=== PATIENT | female | born 1940 | race Caucasian/White ===

== ENCOUNTER 2020-02-22 14:14 | Emergency (ER) | payer OTHER ==
[~2020-02-22 14:14] MED LIST: NA CHLORIDE 0.9% 1,000 ML ONE
[2020-02-22] MEDS ORDERED: AMIODARONE HCL 150 MG in D5W 100 ML IV STA (14:23)
[2020-02-22 14:45] LABS: Absolute Lymphocytes (CBC) 7.6 K/uL (0.7-4.9); Basophils % 0.9 % (0-1.3); Lymphocytes % 63.5 % (15.3-44.8); MPV 9.3 fL (7.6-11.3); RBC Red Blood Cell Count 3.54 M/uL (3.86-4.86)
[2020-02-22 14:49] LABS: Protime INR 1.06
--- NOTE | 2020-02-22 14:49 | RAD REPORT ---
EXAM DESCRIPTION: RAD - Chest Single View - 02/22/2020 2:41 pm CLINICAL HISTORY: collapse, CPR Chest pain. COMPARISON: CHEST SINGLE VIEW dated 05/25/2010; CHEST PA AND LAT 2 VIEW dated 07/12/2000 FINDINGS: Portable technique limits examination quality. Tip of the ET tube is above the sergio. The lungs are grossly clear. The heart is mildly enlarged in size with dual lead pacer device present. No displaced fractures.
[2020-02-22] MEDS ORDERED: AMIODARONE HCL 900 MG in Dextrose 5%-Water 482 ML IV SCH (15:00)
--- NOTE | 2020-02-22 15:02 | RAD REPORT ---
EXAM DESCRIPTION: CT - Head Brain Wo Cont - 02/22/2020 2:51 pm CLINICAL HISTORY: collapse, head injury Fall, head injury, pain, trauma COMPARISON: No comparisons TECHNIQUE: All CT scans are performed using dose optimization technique as appropriate and may inclu de automated exposure control or mA/KV adjustment according to patient size. FINDINGS: No intracranial hemorrhage, hydrocephalus or extra-axial fluid collection.Mild generalized brain atrophy is present with mild periventricular and deep white matter chronic microvascular ische bernard changes.No areas of brain edema or evidence of midline shift. The paranasal sinuses and mastoids are clear. The calvarium is intact. IMPRESSION: No acute intracranial abnormality.
--- NOTE | 2020-02-22 15:07 | RAD REPORT ---
EXAM DESCRIPTION: CT - Angio Aorta For Dissection - 02/22/2020 2:51 pm CLINICAL HISTORY: Chest pain radiating to the back. collapse COMPARISON: No comparisons TECHNIQUE: CT angiography of the aorta was performed with MIPs. All CT scans are performed using dose optimization technique as appropriate and may include automated exposure control or mA/KV adjustment according to patient size. FINDINGS: A left aortic arch is present with normal branching pattern of the great vessels.No acute aortic finding is seen such as aneurysm, penetrating ulcer or dissection. The celiac axis, SMA, ANIYA and renal arteries are patent. No evidence of pulmonary embolism. Moderate cardiomegaly with pacemaker wires in place. Atelectasis is present in both lung bases. ET tube tip is above the sergio. The liver demonstrates no focal mass or biliary dilatation.The spleen, pancreas, adrenal glands and k idneys are within normal limits for arterial phase imaging. No bowel obstruction, free fluid or abscess.Moderate stool is seen in the colon.No pathologic enlarge d lymphadenopathy identified. No displaced fractures evident. IMPRESSION: No acute aortic finding is demonstrated.
[2020-02-22 15:21] LABS: Troponin (Emerg Dept Use Only) 0.13 ng/mL (0.0-0.045)
[2020-02-22 15:23] LABS: Magnesium 3.5 mg/dL (1.8-2.4)
[2020-02-22] MEDS ORDERED: FENTANYL CITR 100 MCG/2 ML ONE (15:33)
[2020-02-22 15:39] LABS: Arterial Blood Carboxyhemoglob 0.7 % (0-1.5); Blood Gas Oxyhemoglobin 98.2 % (94-97); Blood O2 Saturation 99.7 % (92-98.5)
--- NOTE | 2020-02-22 16:03 | ER ---
Nurse's Notes [facility] Name: Carole Enriquez Age: 79 yrs Sex: Female : 1940 Arrival Date: 02/22/2020 Time: 14:15 Bed 2 Private MD: Parminder Reina B Diagnosis: Cardiac arrest;Bradycardia, unspecified;Pacemaker Malfunction Presentation: 02/21 14:14 Chief complaint: EMS states: witnessed arrest, pt was feeling SOB while talking with sv family, had a syncopal episode; went down and hit her head on a railing. No pulse noted by family and CPR was started. On EMS arrival, CPR continued by thumper and en route pt was noted to be in VFib twice and shocked twice at 1352 \T\ 1403. Care prior to arrival: CPR manually via thumper performed by bystander performed by EMS was defibrillated and is still in progress. Compressions began prior to arrival. 14:14 Method Of Arrival: EMS: [facility] sv 14:14 Acuity: JOHN 1 sv 14:46 Risk Assessment: Do you want to hurt yourself or someone else? Unable to obtain. Onset sv of symptoms was February 22, 2020. Historical: - Allergies: 14:34 No Known Allergies; sv - PMHx: 14:34 Hypotension; Bradycardia; low Vit D level; sv - PSHx: 14:34 Pacemaker; Hip; sv - Immunization history:: Adult Immunizations unknown. - Social history:: Smoking status: unknown. - Family history:: not pertinent. - Hospitalizations: : No recent hospitalization is reported. Screenin:44 Abuse screen: unable to complete. Nutritional screening: unable to complete . sv Tuberculosis screening: unable to complete. Assessment: 14:14 CPR assessment: unresponsive, no respiratory effort, Ambu ventilation. Cardiac rhythm sv is asystole. General: Behavior is unresponsive. Neuro: Level of Consciousness is unresponsive. Respiratory: Respiratory pattern is AMBU ventilation. Derm: Skin is pale. 14:16 Reassessment: CPR paused, pulse check, asystole, CPR resumed. sv 14:19 Reassessment: CPR paused, pulse check, pt has a palpable pulse verified by Dr Rice, sv HR-56. 14:47 Reassessment: Belongings given to family. sv 15:02 Respiratory: Ventilator assessment: ET Tube: 7.0 22cm at teeth Ventilator Mode: Assist hb Control (AC) Tidal Volume: 460 Respiratory Rate: 14 FiO2: 100%. PEEP: 5 HOB > 30 degrees. 15:13 General: Behavior is unresponsive. Neuro: Level of Consciousness is unresponsive. em Respiratory: Airway is patent via oral intubation Respiratory effort is. Derm: Skin is intact, Skin is dry, Skin is pale, Skin temperature is cool. 15:25 Reassessment: currently pacing at 60 BPM, D/C'd amiodarone. em 16:20 Reassessment: No changes from previously documented assessment. pending transfer. em 17:20 Reassessment: report given to [facility]. Reassessment:. General: Behavior is em unresponsive. Neuro: Level of Consciousness is unresponsive. Respiratory: Airway is patent via oral intubation Respiratory effort is even. Derm: Skin is intact, Skin is dry, Skin is pale, Skin temperature is cool. Vital Signs: 14:22 Pulse 56; Pulse Ox 99% ; sv 14:24 BP 180 / 96; Pulse 68; Resp 16; Pulse Ox 100% ; sv 14:48 BP 119 / 49; Pulse 38; Resp 16 A; Pulse Ox 100% on ETT vent; em 15:05 BP 103 / 42; Pulse 30; Resp 14; Pulse Ox 100% on ETT vent; em 15:33 BP 102 / 89; Pulse 60; Resp 14 A; Pulse Ox 100% on ETT vent; em 16:00 BP 112 / 65; Pulse 54; Resp 18; Temp 95.5(C); Pulse Ox 100% on ETT vent; em 16:45 BP 130 / 67; Pulse 49; Resp 21; Temp 95.9(C); Pulse Ox 98% on ETT vent; em 17:15 BP 136 / 53; Pulse 55; Resp 16; Temp 96.7(C); Pulse Ox 99% on ETT vent; em ED Course: 14:14 Maintain EMS IV. Dressing intact. Site clean \T\ dry. Gauge \T\ site: 18G R AC. sv 14:15 Patient arrived in ED. ss 14:15 lease purchase driver on. Pulse ox on. NIBP on. sv 14:18 Inserted saline lock: 22 gauge in left antecubital area, using aseptic technique. sv ,using aseptic technique. done by Bryan ARRINGTON. 14:18 Assisted provider with intubation using 7.0 mm ETT via oral route. ET tube secured at sv 22cm at the teeth. Set up intubation tray. Intubated by Bradly Rice MD Placement verified by CO2 detector w/ + color change, auscultating bilateral breath sounds. 14:23 Assisted provider with central line placement. Set up central line tray. Triple lumen sv line placed in right femoral. Line placed by Bradly Rice MD Placement verified by blood return, Dressed with Tegaderm, Blood was collected. Patient tolerated pt intubated Before procedure, did Practitioner(s) obtain informed consent? No. Patient \T\ family education about procedure, CLABSI prevention and S/S of infection? No. Time-out/Briefing performed prior to start of procedure? Yes. Was handwashing/sanitizing done immediately prior to procedure? Yes. Was patient positioned to in a way to prevent air embolism? Yes. Was procedure site sterilized? Yes, with chlorhexidine. Was the site allowed to dry? Yes. Was local anesthetic and/or sedation utilized? Yes. During the procedure, did the Practitioner(s) maintain a sterile field? Yes. Were unused ports clamped during insertion? Yes. Was a 2nd qualified MD obtained after 3 unsuccessful insertion attempts? Yes. Was blood aspirated from each lumen? Yes. After the procedure, did the Practitioner(s) clean the site and apply a sterile dressing? Yes. 14:25 Patient has correct armband on for positive identification. Placed in gown. Bed in low sv position. Call light in reach. Side rails up X2. 14:28 Bradly Rice MD is Attending Physician. rn 14:30 Arm band placed on. sv 14:[address] via stretcher. sv 14:34 Triage completed. sv 14:34 Parminder Reina MD is Private Physician. sv 14:41 XRAY Chest (1 view) In Process Unspecified. EDMS 14:43 Bryan Denise, MURPHY is Primary Nurse. sv 14:51 CT Head Brain wo Cont In Process Unspecified. EDMS 14:51 CT Aorta for Dissection In Process Unspecified. EDMS 16:00 Pretty cath inserted, using sterile technique, 16 Fr., by collection manager, balloon inflated, to em gravity drainage, returned clear yellow urine. Patient tolerated well. 16:10 NGT: inserted 16 Fr. via left nare. verified placement of air over stomach, verified em return of gastric contents, to intermittent suction. Returned bright red blood. Patient tolerated well. Administered Medications: 14:17 Drug: EPINEPHrine 0.1mg/mL 1:10,000 1 mg Route: IVP; Site: right antecubital; sv 14:39 Follow up: Response: No adverse reaction sv 14:18 Drug: NS 0.9% 1000 ml Route: IV; Rate: 1000 ml; Site: left antecubital; sv 16:00 Follow up: IV Status: Completed infusion; IV Intake: 1000ml em 14:18 Drug: Magnesium Sulfate 1 grams {Note: given by Debbie ARRINGTON.} Route: IVPB; Rate: bolus; sv Site: left antecubital; 14:19 Follow up: Response: No adverse reaction; IV Status: Completed infusion sv 14:19 Drug: Sodium Bicarbonate 1 amp Route: IVP; Site: left antecubital; sv 14:39 Follow up: Response: No adverse reaction sv 14:21 Drug: amiodarone 150 mg Volume: 100 ml; Route: IVPB; Infused Over: 10 mins; Site: left sv antecubital; 14:30 Follow up: IV Status: Completed infusion em 14:26 Drug: amiodarone 900 mg, D5W 500 ml Route: IVPB; Rate: 1 mg/min; Site: left antecubital;sv 16:20 Follow up: IV Status: Order to discontinue infusion em 14:59 CANCELLED (Duplicate Order): Atropine 0.5 mg IVP once rn 15:30 Drug: fentaNYL (PF) 75 mcg Route: IVP; Site: left antecubital; em 16:00 Follow up: Response: No adverse reaction em 16:07 Drug: Atropine 0.5 mg Route: IVP; Site: left antecubital; em 16:10 Follow up: Response: No adverse reaction; Marked relief of symptoms em 16:10 Drug: Atropine 0.5 mg Route: IVP; Site: left antecubital; em 17:05 Follow up: Response: No adverse reaction; Marked relief of symptoms em Intake: 16:00 IV: 1000ml; Total: 1000ml. em Output: 17:36 Urine: 100ml (Pretty); Total: 100ml. em Outcome: 16:02 ER care complete, transfer ordered by . rn 17:36 Transferred by helicopter to [facility], [facility] [place], Transfer form completed. em X-rays sent w/ patient. 17:36 Condition: stable 17:36 Instructed on the need for admit. 17:41 Patient left the ED. em Signatures: Dispatcher [employer] Nida Carroll RN RN sv Munoz, Edgar, RN RN em Nieto, Roman, MD MD rn Smirch, Shelby, RN RN ss Baxter, Heather, RN RN hb
--- NOTE | 2020-02-22 16:04 | EDPHYS ---
Physician Documentation [facility] Name: Carole Enriquez Age: 79 yrs Sex: Female : 1940 Arrival Date: 02/22/2020 Time: 14:15 Bed 2 Private MD: Parminder Reina B ED Physician Bradly Rice HPI: 02/21 15:40 This 79 yrs old Female presents to ER via EMS with complaints of CPR. rn 15:40 Preceding the arrest, the patient collapsed, was dyspneic. The arrest occurred at home. rn Pre-hospital course: The arrest was witnessed Bystanders at the scene performed CPR. EMS care prior to arrival: initiation of ACLS, peripheral IV. The patient has not experienced similar symptoms in the past. Per Family, patient at home, seemed sob, collapsed, struck head on rail, no pulse felt, + bystander CPR, has pacemaker, EMS reports thought she had faint pulse but wasn't sure, started CPR, no airway, + bagging, shocked twice for suspected vfib.. Historical: - Allergies: 14:34 No Known Allergies; sv - PMHx: 14:34 Hypotension; Bradycardia; low Vit D level; sv - PSHx: 14:34 Pacemaker; Hip; sv - Immunization history:: Adult Immunizations unknown. - Social history:: Smoking status: unknown. - Family history:: not pertinent. - Hospitalizations: : No recent hospitalization is reported. ROS: 15:40 Unable to obtain ROS due to comatose state. rn Exam: 15:40 Constitutional: This is a well developed, well nourished patient who is unsrepsonsive, rn GCS 3 Head/Face: Normocephalic, atraumatic. Eyes: Unequal pupils but right pupil with evidence of cataract surgery ENT: No oral swelling or stridor Cardiovascular: No spont cardiac activity noted. Respiratory: Coarse bilateral breath sounds with bagging Abdomen/GI: soft, non-distended MS/ Extremity: Pulseless, warm extremities. Neuro: GCS 3, no posturing 15:40 ECG was reviewed by the Attending Physician. Vital Signs: 14:22 Pulse 56; Pulse Ox 99% ; sv 14:24 BP 180 / 96; Pulse 68; Resp 16; Pulse Ox 100% ; sv 14:48 BP 119 / 49; Pulse 38; Resp 16 A; Pulse Ox 100% on ETT vent; em 15:05 BP 103 / 42; Pulse 30; Resp 14; Pulse Ox 100% on ETT vent; em 15:33 BP 102 / 89; Pulse 60; Resp 14 A; Pulse Ox 100% on ETT vent; em 16:00 BP 112 / 65; Pulse 54; Resp 18; Temp 95.5(C); Pulse Ox 100% on ETT vent; em 16:45 BP 130 / 67; Pulse 49; Resp 21; Temp 95.9(C); Pulse Ox 98% on ETT vent; em 17:15 BP 136 / 53; Pulse 55; Resp 16; Temp 96.7(C); Pulse Ox 99% on ETT vent; em Procedures: 14:31 Intubation: Ventilated with 100% NRB prior to procedure. O2 saturation prior to rn lvn was 40 %. Intubated orally using # 4 Tomasa blade with 7.5 mm ETT. was successful on first attempt. Cricoid pressure applied during procedure. Tube secured with ETT flor at right side of mouth measured 22 cm at teeth. Placement verified by CXR, auscultating bilateral breath sounds, O2 saturation after procedure was 98 %. Patient tolerated well. Central Line: the site was prepped with Betadine, in sterile fashion, a triple lumen catheter was inserted, in the right femoral vein, in 1 attempts. placement was verified, by blood return, the site was dressed with Tegaderm, using sterile technique, the patient tolerated the procedure, well. MDM: 14:28 Patient medically screened. rn 15:34 ED course: Consulted with Connie calloway regarding concern for pacemaker malfunction, not rn capturing, recommends transfer to [facility] for further care. External pacer started, capturing at 60 bpm 30mA, BP stable. . 16:00 Differential diagnosis: arrythmia, cardiac arrest, respiratory arrest. Differential rn diagnosis: pacemaker malfunction. Data reviewed: vital signs, nurses notes. Counseling: I had a detailed discussion with the patient and/or guardian regarding: the historical points, exam findings, and any diagnostic results supporting the discharge/admit diagnosis, lab results, radiology results, the need to transfer to another facility, for higher level of care. Response to treatment: the patient's symptoms have mildly improved after treatment, and as a result, I will admit patient. ED course: Placed magnet over pacer, still not capturing more than 40 bpm, restarted external pacer, accepted for transfer to [facility]U.. 02/21 14:30 Order name: Basic Metabolic Panel; Complete Time: 15:26 rn 02/21 14:30 Order name: CBC with Diff; Complete Time: 16:15 rn 02/21 14:30 Order name: Magnesium; Complete Time: 15:26 rn 02/21 14:30 Order name: NT PRO-BNP; Complete Time: 15:26 rn 02/21 14:30 Order name: PT-INR; Complete Time: 14:57 rn 02/21 14:30 Order name: Troponin (emerg Dept Use Only); Complete Time: 15:26 rn 02/21 14:30 Order name: XRAY Chest (1 view); Complete Time: 14:57 rn 02/21 14:30 Order name: Blood Culture Adult (2) rn 02/21 14:30 Order name: ABG; Complete Time: 17:08 rn 02/21 14:31 Order name: CT Head Brain wo Cont; Complete Time: 15:12 rn 02/21 14:31 Order name: CT Aorta for Dissection; Complete Time: 15:12 rn 02/21 14:54 Order name: CBC Smear Scan; Complete Time: 16:15 EDMS 02/21 17:03 Order name: ARTERIAL BLOOD GAS EDID 02/21 14:30 Order name: EKG; Complete Time: 14:32 rn 02/21 14:30 Order name: Cardiac monitoring; Complete Time: 14:47 rn 02/21 14:30 Order name: EKG - Nurse/Tech; Complete Time: 16:45 rn 02/21 14:30 Order name: IV Saline Lock; Complete Time: 14:47 rn 02/21 14:30 Order name: Labs collected and sent; Complete Time: 14:47 rn 02/21 14:30 Order name: O2 Per Protocol; Complete Time: 14:47 rn 02/21 14:30 Order name: O2 Sat Monitoring; Complete Time: 14:47 rn 02/21 14:31 Order name: Glucose Level; Complete Time: 16:45 rn EC:40 Rate is 32 beats/min. Rhythm is irregularly irregular. CT interval is prolonged. QRS rn interval is normal. QT interval is prolonged. No Q waves. T waves are Normal. No ST changes noted. Clinical impression: Bradycardia, paced, pacemaker failure to capture. Interpreted by me. Reviewed by me. Administered Medications: 14:17 Drug: EPINEPHrine 0.1mg/mL 1:10,000 1 mg Route: IVP; Site: right antecubital; sv 14:39 Follow up: Response: No adverse reaction sv 14:18 Drug: NS 0.9% 1000 ml Route: IV; Rate: 1000 ml; Site: left antecubital; sv 16:00 Follow up: IV Status: Completed infusion; IV Intake: 1000ml em 14:18 Drug: Magnesium Sulfate 1 grams {Note: given by Debbie ARRINGTON.} Route: IVPB; Rate: bolus; sv Site: left antecubital; 14:19 Follow up: Response: No adverse reaction; IV Status: Completed infusion sv 14:19 Drug: Sodium Bicarbonate 1 amp Route: IVP; Site: left antecubital; sv 14:39 Follow up: Response: No adverse reaction sv 14:21 Drug: amiodarone 150 mg Volume: 100 ml; Route: IVPB; Infused Over: 10 mins; Site: left sv antecubital; 14:30 Follow up: IV Status: Completed infusion em 14:26 Drug: amiodarone 900 mg, D5W 500 ml Route: IVPB; Rate: 1 mg/min; Site: left antecubital;sv 16:20 Follow up: IV Status: Order to discontinue infusion em 14:59 CANCELLED (Duplicate Order): Atropine 0.5 mg IVP once rn 15:30 Drug: fentaNYL (PF) 75 mcg Route: IVP; Site: left antecubital; em 16:00 Follow up: Response: No adverse reaction em 16:07 Drug: Atropine 0.5 mg Route: IVP; Site: left antecubital; em 16:10 Follow up: Response: No adverse reaction; Marked relief of symptoms em 16:10 Drug: Atropine 0.5 mg Route: IVP; Site: left antecubital; em 17:05 Follow up: Response: No adverse reaction; Marked relief of symptoms em Disposition: 15:45 Critical Care:. rn Disposition: 02/22/20 16:02 Transfer ordered to [facility]. Diagnosis are Cardiac arrest, Bradycardia, unspecified, Pacemaker Malfunction. - Reason for transfer: Higher level of care. - Accepting physician is . - Condition is Serious. - Problem is new. - Symptoms have improved. Critical care time excluding procedures: 15:45 Critical care time: Bedside Care: 25 minutes, Consultation: 5 minutes. Total time: 30 rn minutes Signatures: Dispatcher [employer] Nida Carroll, RN Bryan Kidd RN RN Bradly Quiñones MD MD graduate intern: (The following items were deleted from the chart) 14:59 14:58 Atropine 0.5 mg IVP once ordered. rn rn 17:41 16:02 02/22/2020 16:02 Transfer ordered to [facility]. em Diagnosis is Cardiac arrest; Bradycardia, unspecified; Pacemaker Malfunction. Reason for transfer: Higher level of care. Accepting physician is . Condition is Serious. Problem is new. Symptoms have improved. rn
[2020-02-22 16:11] LABS: Blood Morphology Comment NOTED (NOT SEEN); Platelet Estimate ADEQ; Polychromasia 1+; Urine White Blood Cell Casts OK
[2020-02-22 17:58] VITALS: BP 136/53; TEMP 96.7; O2SAT 99
--- NOTE | 2020-02-23 07:01 | EKG ---
Test Date: 2020-02-22 Test Time: 15:03:27 Security Assurance Analyst: CYNTHIA MEASUREMENT RESULTS: Intervals: Rate: 32 SD: 200 QRSD: 144 QT: 750 QTc: 547 [place]: P: SD: 200 QRS: 121 T: 269 INTERPRETIVE STATEMENTS: Electronic atrial pacemaker Right bundle branch block Left posterior fascicular block Bifascicular block Marked T wave abnormality, consider inferolateral ischemia Abnormal ECG Compared to ECG 05/25/2010 12:36:05 Right bundle-branch block now present Left posterior fascicular block now present Bifascicular block now present T-wave abnormality now present Possible ischemia now present Sinus rhythm no longer present ST (T wave) deviation no longer present Electronically Signed On 02-23-20 07:00:08 CDT by Steven Henry
== END 2020-02-22 17:41 | disposition short-term general hospital (02) ==
LOC: ER 14:14
PROC: 0BH17EZ Insertion of Endotracheal Airway into Trachea, Via Natural or Artificial Opening (ICD-10-PCS; principal; 2020-02-22)
PROC: 5A1935Z Respiratory Ventilation, Less than 24 Consecutive Hours (ICD-10-PCS; 2020-02-22)
PROC: 06HM33Z Insertion of Infusion Device into Right Femoral Vein, Percutaneous Approach (ICD-10-PCS; 2020-02-22)
PROC: 5A12012 Performance of Cardiac Output, Single, Manual (ICD-10-PCS; 2020-02-22)
DX: I46.9 Cardiac arrest, cause unspecified (principal); T82.119A Breakdown (mechanical) of unspecified cardiac electronic device, initial encounter; R00.1 Bradycardia, unspecified; I95.9 Hypotension, unspecified
CPT/HCPCS: 93005; 87040; 85025; 80048; 36415; 83735; 85610; 84484; 83880; 70450; 71275; 74175; 71045; 94002; 82805 ×2; 31500; 36556; 92950; Q9967; J3010; J7030; 51702; 99291; 99292; J0282; J7060